=== PATIENT | female | born 1960 | race Caucasian/White ===

== ENCOUNTER 2017-06-28 17:32 | Emergency (ER) | payer SELFPAY ==
[~2017-06-28] VITALS: Ht 170.2 cm; Wt 68.0 kg
[2017-06-28 18:11] VITALS: Ht 170.2 cm; Wt 68.0 kg
[2017-06-28 19:44] VITALS: BP 147/94
== END 2017-06-28 19:44 | disposition home or self-care (01) ==
LOC: ED 17:32
DX: M54.12 Radiculopathy, cervical region (principal); Z88.2 Allergy status to sulfonamides